=== PATIENT | female | born 1970 | race Caucasian/White ===

== ENCOUNTER 2022-12-12 15:08 | Emergency (ER) | payer MEDICARE ==
--- NOTE | 2022-12-12 15:18 | ERPHSYRPT ---
- History of Present Illness Time Seen by Provider: 12/12/22 15:18 Source: patient Exam Limitations: no limitations Physician History: This is a 52-year-old white female who has known cerebral aneurysms x2 intracranially. Patient had one of the cerebral aneurysms clipped and the second 1, per patient report, is not amenable to surgery. They are following that second cerebral aneurysm as an outpatient. Patient states that she does not want any narcotics and typically does well with Toradol and Phenergan medication this headache began yesterday and is global in location and is aching and throbbing. She does have some light sensitivity. She also has some nausea and vomiting symptoms. She took her typical Imitrex yesterday and again today and that has not helped. Therefore she is here for evaluation and management of her migraine headache. Quality: aching, throbbing Head Pain Location: global Severity of Pain-Max: moderate Severity of Pain-Current: moderate Recent Head Trauma: no recent headache/trauma, frequent headaches Modifying Factors: Improves With: exposure to light, noise Associated Symptoms: sensitive to light Previous symptoms: same symptoms as today, recently seen Allergies/Adverse Reactions: aspirin Allergy (Verified 12/12/22 15:35) bee venom protein (honey bee) Allergy (Verified 12/12/22 15:51) Tightness of Throat clindamycin Allergy (Verified 12/12/22 15:51) unknown reaction codeine Allergy (Verified 12/12/22 15:51) unknown reaction diphenhydramine Allergy (Verified 12/12/22 15:51) fluoxetine Allergy (Verified 12/12/22 15:51) iron Allergy (Verified 12/12/22 15:51) Rash morphine Allergy (Verified 12/12/22 15:35) Penicillins Allergy (Verified 12/12/22 15:35) shellfish derived Allergy (Verified 12/12/22 15:51) shrimp Allergy (Verified 12/12/22 15:35) tetracycline Allergy (Verified 12/12/22 15:51) topiramate Allergy (Verified 12/12/22 15:51) venlafaxine [From Effexor] Allergy (Verified 12/12/22 15:35) venom-wasp Allergy (Verified 12/12/22 15:51) Tightness of Throat Home Medications: Albuterol Sulfate [Proair Respiclick] 2 puff IH Q4-6HPRN PRN 12/12/22 [History] Ascorbic Acid/Zinc Oxide [Zinc-Vitamin C 50-90 mg Sfgl] 1 tab PO DAILY 12/12/22 [History] Buspirone HCl 5 mg [Buspar 5 mg] 10 mg PO TID 12/12/22 [History] Fludrocortisone Acetate 0.1 mg PO DAILY 12/12/22 [History] Lamotrigine [Lamotrigine ER] 200 mg PO BID 12/12/22 [History] Multivitamin 1 tab PO DAILY 12/12/22 [History] Ondansetron ODT 4 MG [Zofran Odt 4 mg] 4 mg PO Q4-6HPRN PRN 12/12/22 [History] SUMAtriptan succinate [Imitrex 50 mg] 50 mg PO PRN 12/12/22 [History] clonazePAM [Clonazepam] 0.5 mg PO TID 12/12/22 [History] Travel Risk - International Travel Have you traveled outside of the country in past 3 weeks: No - Coronavirus Screening Are you exhibiting any of the following symptoms?: No Close contact with a COVID-19 positive Pt in past 14-21 Days: No - Review of Systems Constitutional: No Symptoms Eyes: No Symptoms Ears, Nose, & Throat: No Symptoms Respiratory: No Symptoms Cardiac: No Symptoms Abdominal/Gastrointestinal: No Symptoms Genitourinary Symptoms: No Symptoms Musculoskeletal: No Symptoms Skin: No Symptoms Neurological: Headache Psychological: No Symptoms Endocrine: No Symptoms Hematologic/Lymphatic: No Symptoms Immunological/Allergic: No Symptoms All Other Systems: Reviewed and Negative - Past Medical History Pertinent Past Medical History: Yes - Past Surgical History Past Surgical History: Yes - Nursing Vital Signs Nursing Vital Signs: Initial Vital Signs Temperature 97.2 F 12/12/22 15:18 Pulse Rate 65 12/12/22 15:18 Respiratory Rate 17 12/12/22 15:18 Blood Pressure 129/72 12/12/22 15:18 O2 Sat by Pulse Oximetry 99 12/12/22 15:18 Pain Scale Pain Intensity 8 - Physical Exam General Appearance: mild distress (To moderate), thin Eye Exam: PERRL/EOMI, eyes nml inspection Ears, Nose, Throat Exam: normal ENT inspection, moist mucous membranes Neck Exam: normal inspection, non-tender, supple, full range of motion Respiratory Exam: normal breath sounds, lungs clear, airway intact, No chest tenderness, No respiratory distress Cardiovascular Exam: regular rate/rhythm, normal heart sounds, normal peripheral pulses Gastrointestinal/Abdominal Exam: soft, normal bowel sounds, No tenderness Back Exam: normal inspection, normal range of motion, No CVA tenderness, No vertebral tenderness Extremity Exam: normal inspection, normal range of motion, pelvis stable Mental Status Exam: alert, oriented x 3, cooperative therapeutic recreation specialist Exam: normal hearing, normal speech, PERRL Coordination/Gait Exam: normal finger to nose, normal gait, normal cerebellar function Motor/Sensory Exam: no motor deficit, no sensory deficit, no pronator drift Skin Exam: normal color, warm, dry Lymphatic Exam: No adenopathy SpO2 Interpretation: normal O2 Delivery: Room Air - Course Nursing assessment & vital signs reviewed: Yes Ordered Tests: Active Orders 24 hr Category Date Time Status HEAD WITHOUT CONTRAST [CT] Stat Exams 12/12/22 15:43 Completed Medication Summary Discontinued Medications Generic Name Dose Route Start Last Admin Trade Name Ruiz PRN Reason Stop Dose Admin Ketorolac Tromethamine 60 mg 12/12/22 15:53 12/12/22 16:26 Ketorolac Tromethamine 30 Mg/Ml Inj IM 12/12/22 15:54 60 mg STAT ONE Administration Ketorolac Tromethamine Confirm 12/12/22 16:25 Ketorolac Tromethamine 30 Mg/Ml Inj Administered 12/12/22 16:26 Dose 60 mg .ROUTE .STK-MED ONE - Progress Progress: improved, re-examined Air Movement: good Progress Note: 12/12/22 16:46 CT scan of head without contrast shows beam 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 There are no gross acute abnormalities. Status post left temporoparietal craniotomy 12/12/22 16:46 Our facility does not allow us to give intravenous or intramuscular Phenergan. Patient stated that she cannot use Compazine. Therefore I offered her oral Phenergan, Phenergan suppository or Zofran ODT. Patient opted for Zofran ODT. Blood Culture(s) Obtained: No Antibiotics given: No Counseled pt/family regarding: diagnosis, need for follow-up, rad results - Departure Departure Disposition: Home Clinical Impression: Migraine headache Condition: Stable Critical Care Time: No Additional Instructions: Take your medication as prescribed. Follow-up with your neurologist tomorrow to discuss further instructions/management options.
[2022-12-12] MEDS ORDERED: TORAdol 30 mg Injection IM ONE (15:53)
[2022-12-12] MEDS ORDERED: TORAdol 30 mg Injection ONE (16:25)
--- NOTE | 2022-12-12 16:35 | XRAY ---
Indication: Left temporal/cold base pain 1 week. Multiple contiguous axial images obtained through the head without contrast. Comparison: None Left parasellar aneurysm clips produces extreme beam artifact. Ventriculosulcal pattern appears symmetric. No acute intracranial hemorrhage, abnormal extra-axial fluid collection, or mass effect. Fourth ventricle is midline without hydrocephalus. Gibson-white matter differentiation preserved. Bony calvarium intact with left temporoparietal craniotomy. Visualized paranasal sinuses and mastoid air cells are clear. Impression: 1. 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 2. Left temporoparietal craniotomy. 3. No gross acute intracranial abnormalities.
[2022-12-12 16:40] VITALS: BP 120/70
[2022-12-12] MEDS ORDERED: ZOFRAN ODT 4 MG PO ONE (16:44)
[2022-12-12] MEDS ORDERED: ZOFRAN ODT 4 MG ONE (16:46)
[2022-12-12 16:56] VITALS: PULSE 58; O2SAT 96
== END 2022-12-12 16:56 | disposition home or self-care (01) ==
LOC: ED 15:08
DX: G43.909 Migraine, unspecified, not intractable, without status migrainosus (principal); R11.2 Nausea with vomiting, unspecified; Z79.899 Other long term (current) drug therapy
CPT/HCPCS: 70450; 96372; 99283; J1885; Q0162